=== PATIENT | male | born 1955 | race Caucasian/White ===

== ENCOUNTER 2023-03-14 17:42 | Emergency (ER) | payer BC, SELFPAY ==
--- NOTE | ~2023-03-14 | XR_ITS ---
EXAMINATION: XR chest 2V Exam Date/Time: 03/14/2023 17:56 CDT HISTORY: CP, SOB, DIZZINESS, HX OF SMOKING Comparison: None. RESULT: Lines, tubes, and devices: None. Lungs and pleura: Diffuse reticulonodular opacities with cuffing and indistinct vessels. No pleural effusion. No pneumothorax. No focal consolidation. Cardiomediastinal silhouette: Mild aortic unfolding. Other: No acute osseous or upper abdominal finding. IMPRESSION: Pulmonary opacities may represent mild interstitial edema and/or respiratory bronchiolitis. Reviewed, dictated and finalized at location K. IMPRESSION: Pulmonary opacities may represent mild interstitial edema and/or respiratory br onchiolitis.
[2023-03-14 17:44] VITALS: PULSE 67; RESP 16; TEMP 36; O2SAT 98
--- NOTE | 2023-03-14 17:57 | ECG_ITS ---
Measurements Intervals [place] Rate: 57 P: 70 VT: 168 QRS: 59 QRSD: 120 T: 55 QT: 402 QTc: 394 Interpretive Statements SINUS BRADYCARDIA INCOMPLETE RIGHT BUNDLE BRANCH BLOCK BASELINE ARTIFACT- III, V5-V6 BORDERLINE ECG NO PREVIOUS ECG AVAILABLE FOR COMPARISON Electronically Signed On 03-15-2023 7:31:44 CDT by Fernando Flores D.O.
[2023-03-14 18:05] LABS: Basophils Absolute Auto 0.1 K/mm3 (0.0-0.1); Basophils Percent Auto 0.4 % (0.2-1.2); Eosinophils Absolute Auto 0.2 K/mm3 (0-0.3); Eosinophils Percent Auto 1.4 % (0-4.4); Hematocrit 45.1 % (42.0-52.0); Immature Granulocyte Absolute 0.01 K/mm3 (0.00-0.031); Immature Granulocyte Percent A 0.1 % (0-0.5); Lymphocytes Absolute Auto 5.03 K/mm3 (0.9-3.2); Lymphocytes Percent Auto 43.3 % (18.3-44.2); Mean Corpuscular HGB Conc 33.3 g/dl (32-36); Mean Corpuscular Hemoglobin 29.3 pg (26-34); Mean Corpuscular Volume 88.1 fl (80-100); Mean Platelet Volume 9.9 fl (7.4-10.4); Monocytes Absolute Auto 0.6 K/mm3 (0.1-0.6); Neutrophils Absolute Auto 5.8 K/mm3 (1.3-6.7); Neutrophils Percent Auto 49.8 % (45.5-73.1); Platelet Count Result 155 k/mm3 (150-375); Red Blood Count 5.12 M/mm3 (4.6-6.20); Red Cell Distribution Width 14.8 % (11.5-14.5); White Blood Count 11.6 K/mm3 (4.5-10.0)
[2023-03-14] MEDS: ASPIRIN 81 MG CHEWABLE TABLET 324 MG PO (18:10)
[2023-03-14 18:15] LABS: Alanine Aminotransferase 31 U/L (6-50); Albumin Level 4.4 g/dL (3.5-5.1); Alkaline Phosphatase 74 U/L (38-126); Anion Gap 7 mmol/L (8-16); Aspartate Amino Transferase 33 U/L (17-59); Bilirubin,Total 0.7 mg/dL (0.2-1.3); Blood Urea Nitrogen 15 mg/dL (9-20); Calcium 8.9 mg/dL (8.4-10.2); Carbon Dioxide 31 mmol/L (22-30); Chloride 100 mmol/L (98-107); Estimated CRCL calculation 65 ml/min; Estimated Glomerular Filt Rate > 60; Glucose 96 mg/dL (65-110); Lipase 46 U/L (23-300); Potassium 4.4 mmol/L (3.4-5.0); Sodium 138 mmol/L (137-145)
--- NOTE | 2023-03-14 18:25 | ED.GENADULT ---
HPI - General Adult General Chief complaint: Shortness of Breath/Dyspnea Stated complaint: cough with shortness of breath Time Seen by Provider: 03/14/23 18:00 History of Present Illness HPI narrative: 67-year-old male with history of COPD presented to the emergency department for evaluation of worsening cough and shortness of breath. Patient states about 2 days ago he began having onset of symptoms. Reports yesterday he had a more intense cough with associated chest pain. Patient reports that the cough has improved today. Patient states he does not use any medications for his COPD. Patient does continue to smoke. Patient lives in [place] and is a long-distance box truck driver. Related Data Allergies Allergy/AdvReac Type Severity Reaction Status Date / Time No Known Allergies Allergy Verified 03/14/23 17:44 Review of Systems Review of Systems: All systems reviewed & are unremarkable except as noted in HPI and below Exam Narrative: APPEARANCE: Well appearing, no pain, no distress, well-nourished. HEAD: normocephalic, atraumatic. EYES: PERRLA/EOMI, conjunctivae clear. NOSE: Normal no drainage NECK: Supple. No adenopathy, no masses. RESPIRATORY: Airway patent, respirations nonlabored. Wheeze in lower lung [place] CARDIOVASCULAR: Regular rate and rhythm without murmurs rubs or gallops. ABDOMINAL: Soft, nontender, nondistended, normal bowel sounds MUSCULOSKELETAL: Moves all extremities. Strength/ROM intact, No edema, No calf tenderness. NEURO: Alert. Cranial nerves II through XII intact. SKIN: Warm, dry. Normal Color Course Course Emergency Course: 67-year-old male presented the ED for evaluation of worsening cough and congestion. Patient is afebrile with a leukocytosis of 11.7. Patient's CMP is within normal limits. Chest x-ray No focal pneumonia. Patient was ordered Xopenex breathing treatment and Tessalon Perles for cough. Patient is being treated for a COPD/pneumonia. Patient did feel improved with the breathing treatment. All question concerns were addressed. Patient was well-appearing and improved at time of discharge. Vital Signs Vital signs: Vital Signs Temperature 96.8 F L 03/14/23 17:44 Pulse Rate 67 03/14/23 17:44 Respiratory Rate 16 03/14/23 17:44 Pulse Oximetry 98 03/14/23 17:44 Oxygen Delivery Room Air 03/14/23 17:44 Temperature 96.8 F L 03/14/23 17:44 Pulse Rate 62 03/14/23 19:20 Respiratory Rate 18 03/14/23 19:20 Blood Pressure 148/84 H 03/14/23 19:20 Pulse Oximetry 95 03/14/23 19:20 Oxygen Delivery Room Air 03/14/23 18:02 Medical Decision Making Differential Diagnosis Differential Diagnosis: Pneumonia, pneumothorax, COPD, viral infection. Vital Signs Vital Signs: Vital Signs Temperature 96.8 F L 03/14/23 17:44 Pulse Rate 67 03/14/23 17:44 Respiratory Rate 16 03/14/23 17:44 Pulse Oximetry 98 03/14/23 17:44 Oxygen Delivery Room Air 03/14/23 17:44 Temperature 96.8 F L 03/14/23 17:44 Pulse Rate 62 03/14/23 19:20 Respiratory Rate 18 03/14/23 19:20 Blood Pressure 148/84 H 03/14/23 19:20 Pulse Oximetry 95 03/14/23 19:20 Oxygen Delivery Room Air 03/14/23 18:02 Lab Data Lab results reviewed: Yes I reviewed the patient's lab results. 03/14/23 18:00 03/14/23 18:00 Labs: Lab Results 03/14/23 Range/Units 18:00 WBC 11.6 H (4.5-10.0) K/mm3 RBC 5.12 (4.6-6.20) M/mm3 Hgb 15.0 (14.0-18.0) g/dL Hct 45.1 (42.0-52.0) % MCV 88.1 (80-100) fl MCH 29.3 (26-34) pg MCHC 33.3 (32-36) g/dl RDW 14.8 H (11.5-14.5) % Plt Count 155 (150-375) k/mm3 MPV 9.9 (7.4-10.4) fl Immature Gran % (Auto) 0.1 (0-0.5) % Neut % (Auto) 49.8 (45.5-73.1) % Lymph % (Auto) 43.3 (18.3-44.2) % [place] % (Auto) 5.0 (2.6-8.5) % Eos % (Auto) 1.4 (0-4.4) % Baso % (Auto) 0.4 (0.2-1.2) % Lymph # (Auto) 5.03 H (0.9-3.2) K/mm3 [place] # (Auto) 0.6 (0.1-0.6) K/mm3 Eos
[2023-03-14 18:27] LABS: Troponin I < 0.012 ng/mL (0.000-0.034)
[2023-03-14 18:31] LABS: INR 0.9
[2023-03-14 18:32] LABS: Partial Thromboplastin Time 30.6 SECONDS (22.3-36.8)
[2023-03-14] MEDS: LEVALBUTEROL NEB 1.25 MG/3 ML 2.5 MG INHALATION (18:36)
[2023-03-14 18:37] VITALS: PULSE 58; RESP 26
[2023-03-14] MEDS: BENZONATATE 100 MG CAPSULE 200 MG PO (19:03)
[2023-03-14] MEDS: AMOXICILLIN/CLAVULANATE K 875-125 MG TAB 1 TABLET PO (19:03)
[2023-03-14] MEDS: AZITHROMYCIN 250 MG TABLET 500 MG PO (19:03)
[2023-03-14 19:20] VITALS: BP 148/84; PULSE 62; RESP 18; O2SAT 95
== END 2023-03-14 19:22 | disposition home or self-care (01) ==
PROVIDERS: Emergency Provider Emergency Medicine
DX: J18.9 Pneumonia, unspecified organism (principal); J44.9 Chronic obstructive pulmonary disease, unspecified; R00.1 Bradycardia, unspecified; I45.10 Unspecified right bundle-branch block
CPT/HCPCS: 36415; 71046; 80053; 83690; 84484; 85025; 85610; 85730; 93005; 94640; 99284; A9270